=== PATIENT | male | born 1990 | race Caucasian/White ===

== ENCOUNTER 2017-08-12 20:33 | Emergency (ER) | payer SELFPAY ==
[~2017-08-12] VITALS: Ht 177.8 cm; Wt 83.9 kg
[2017-08-12 20:36] VITALS: BP 138/79
== END 2017-08-12 21:16 | disposition home or self-care (01) ==
LOC: ER 20:36
DX: J31.2 Chronic pharyngitis (principal); R09.81 Nasal congestion
CPT/HCPCS: 99283; A4606; Z7610